=== PATIENT | female | born 1965 | race Caucasian/White ===

== ENCOUNTER 2021-03-07 17:07 | Emergency (ER) | payer BC ==
[~2021-03-07] VITALS: Ht 167.6 cm; Wt 130.0 kg
[2021-03-07] MEDS ORDERED: hydrALAZINE 20 MG/ML VIAL. IV ONE (18:15)
[2021-03-07 18:40] LABS: CALCIUM 9.3 mg/dL (8.5-10.1); CREATININE 1.3 mg/dL (0.6-1.0); GFR 42.5; POTASSIUM 3.8 mmol/L (3.5-5.1)
[2021-03-07 18:46] LABS: ALBUMIN 3.7 g/dL (3.4-5.0); ALBUMIN/GLOBULIN RATIO 0.9 (1.0-1.7); BASO # 0.1 x10^3/uL (0.0-0.2); BASO % 1 % (0-3); EOS # 0.1 x10^3/uL (0.0-0.7); EOS % 1 % (0-3); HEMATOCRIT 44.8 % (36.0-47.0); HEMOGLOBIN 14.9 g/dL (12.0-15.5); LYMPH # 2.1 x10^3/uL (1.0-4.8); LYMPH % 20 % (24-48); MEAN CORPUSCULAR HEMOGLOBIN 30 pg (25-35); MEAN CORPUSCULAR HGB CONC 33 g/dL (31-37); MEAN CORPUSCULAR VOLUME 91 fL (79-100); MONO # 0.9 x10^3/uL (0.0-1.1); MONO % 8 % (0-9); NEUT # 7.4 x10^3uL (1.8-7.7); NEUT % 70 % (31-73); PLATELET COUNT 291 x10^3/uL (140-400); RED BLOOD COUNT 4.93 x10^6/uL (3.50-5.40); RED CELL DISTRIBUTION WIDTH 14.5 % (11.5-14.5); TOTAL BILIRUBIN 0.3 mg/dL (0.2-1.0); TOTAL PROTEIN 7.6 g/dL (6.4-8.2); WHITE BLOOD COUNT 10.6 x10^3/uL (4.0-11.0)
--- NOTE | 2021-03-07 18:57 | RAD ---
EXAM: XR FOOT_RIGHT 3 VIEWS, XR EXAM OF ANKLE_RIGHT 3VIEWS 03/07/2021 6:00 PM CLINICAL INDICATION: Injury COMPARISON: None TECHNIQUE: 3 views of the right foot and 3 views of the right FINDINGS: Right foot: No acute fracture. Alignment is normal. Mild joint space narrowing at the great toe MTP j oint. Tiny plantar calcaneal enthesophyte. Soft tissue is normal. Right ankle: No acute fracture. The ankle mortise is symmetric and talar dome is intact. No focal sof t tissue abnormality. IMPRESSION: No acute osseous abnormality of the right foot or ankle. Electronically signed by: Shae Garcia MD (03/07/2021 6:54 PM) [id number]
--- NOTE | 2021-03-07 18:58 | RAD ---
EXAM: XR CHEST 1V 03/07/2021 6:00 PM CLINICAL INDICATION: Ankle pain COMPARISON: None TECHNIQUE: PA view of the chest FINDINGS: The heart and mediastinum are normal. Lungs are well-expanded and clear. No consolidatio n, pleural effusion, or pneumothorax. Pulmonary vascularity is normal. The thoracic skeleton is int act. IMPRESSION: Normal chest radiograph. Electronically signed by: Shae Garcia MD (03/07/2021 6:55 PM) [id number]
--- NOTE | 2021-03-07 19:04 | PHYS DOC ---
Past History Past Medical History: No Pertinent History Past Surgical History: No Surgical History Alcohol Use: None General Adult EDM: Chief Complaint: ANKLE PROBLEM HPI: HPI: Patient is a 55-year-old female presents with right ankle pain after missing a step at work and falling. Patient states pain is been worse with ambulation. Patient reports taking Tylenol prior to arrival with little relief. Review of Systems: Review of Systems: Constitutional: Denies fever or chills Eyes: Denies change in visual acuity HENT: Denies nasal congestion or sore throat Respiratory: Denies cough or shortness of breath Cardiovascular: Denies chest pain or edema GI: Denies abdominal pain, nausea, vomiting, bloody stools or diarrhea : Denies dysuria Musculoskeletal: Reports right ankle and foot pain Integument: Denies rash Neurologic: Denies headache, focal weakness or sensory changes Endocrine: Denies polyuria or polydipsia Lymphatic: Denies swollen glands Psychiatric: Denies depression or anxiety Current Medications: Current Meds: Current Medications Medications (Trade) Dose Ordered Sig/Ev Start Time Stop Time Status Last Admin Dose Admin Hydralazine HCl (Apresoline) 20 mg 1X ONCE 03/07/21 18:15 03/07/21 18:27 DC 03/07/21 18:32 20 MG Allergies: Allergies: Allergies Coded Allergies Type Severity Reaction Last Updated Verified No Known Drug Allergies 03/07/21 No Physical Exam: PE: Constitutional: Well developed, well nourished, no acute distress, non-toxic appearance. [] HENT: Normocephalic, atraumatic, bilateral external ears normal, oropharynx moist, no oral exudates, nose normal. [] Eyes: PERRLA, EOMI, conjunctiva normal, no discharge. [] Neck: Normal range of motion, no tenderness, supple, no stridor. [] Cardiovascular:Heart rate regular rhythm, no murmur [] Lungs & Thorax: Bilateral breath sounds clear to auscultation [] Abdomen: Bowel sounds normal, soft, no tenderness, no masses, no pulsatile masses. [] Skin: Warm, dry, no erythema, no rash. [] Back: No tenderness, no CVA tenderness. [] Extremities: Right ankle tenderness, ROM intact, no edema. [] Neurologic: Alert and oriented X 3, normal motor function, normal sensory function, no focal deficits noted. [] Psychologic: Affect normal, judgement normal, mood normal. [] Current Patient Data: Labs: Laboratory Tests Test 03/07/21 18:15 White Blood Count 10.6 x10^3/uL (4.0-11.0) Red Blood Count 4.93 x10^6/uL (3.50-5.40) Hemoglobin 14.9 g/dL (12.0-15.5) Hematocrit 44.8 % (36.0-47.0) Mean Corpuscular Volume 91 fL (79-100) Mean Corpuscular Hemoglobin 30 pg (25-35) Mean Corpuscular Hemoglobin Concent 33 g/dL (31-37) Red Cell Distribution Width 14.5 % (11.5-14.5) Platelet Count 291 x10^3/uL (140-400) Neutrophils (%) (Auto) 70 % (31-73) Lymphocytes (%) (Auto) 20 % (24-48) L Monocytes (%) (Auto) 8 % (0-9) Eosinophils (%) (Auto) 1 % (0-3) Basophils (%) (Auto) 1 % (0-3) Neutrophils # (Auto) 7.4 x10^3uL (1.8-7.7) Lymphocytes # (Auto) 2.1 x10^3/uL (1.0-4.8) Monocytes # (Auto) 0.9 x10^3/uL (0.0-1.1) Eosinophils # (Auto) 0.1 x10^3/uL (0.0-0.7) Basophils # (Auto) 0.1 x10^3/uL (0.0-0.2) Sodium Level 144 mmol/L (136-145) Potassium Level 3.8 mmol/L (3.5-5.1) Chloride Level 102 mmol/L (98-107) Carbon Dioxide Level 29 mmol/L (21-32) Anion Gap 13 (6-14) Blood Urea Nitrogen 21 mg/dL (7-20) H Creatinine 1.3 mg/dL (0.6-1.0) H Estimated GFR (Cockcroft-Gault) 42.5 BUN/Creatinine Ratio 16 (6-20) Glucose Level 224 mg/dL (70-99) H Calcium Level 9.3 mg/dL (8.5-10.1) Total Bilirubin 0.3 mg/dL (0.2-1.0) Aspartate Amino Transferase (AST) 33 U/L (15-37) Alanine Aminotransferase (ALT) 65 U/L (14-59) H Alkaline Phosphatase 79 U/L (46-116) Total Protein 7.6 g/dL (6.4-8.2) Albumin 3.7 g/dL (3.4-5.0) Albumin/Globulin Ratio 0.9 (1.0-1.7) L Vital Signs: Vital Signs Date Time Temp Pulse Resp B/P (MAP) Pulse Ox O2 Delivery O2 Flow Rate FiO2 03/07/21 18:32 104 278/136 03/07/21 17:22 97.9 18 97 Room Air EKG: EKG: [] Radiology/Procedures: Radiology/Procedures: []EXAM: XR FOOT_RIGHT 3 VIEWS, XR EXAM OF ANKLE_RIGHT 3VIEWS 03/07/2021 6:00 PM CLINICAL INDICATION: Injury COMPARISON: None TECHNIQUE: 3 views of the right foot and 3 views of the right FINDINGS: Right foot: No acute fracture. Alignment is normal. Mild joint space narrowing at the great toe MTP joint. Tiny plantar calcaneal enthesophyte. Soft tissue is normal. Right ankle: No acute fracture. The ankle mortise is symmetric and talar dome is intact. No focal soft tissue abnormality. IMPRESSION: No acute osseous abnormality of the right foot or ankle. EXAM: XR CHEST 1V 03/07/2021 6:00 PM CLINICAL INDICATION: Ankle pain COMPARISON: None TECHNIQUE: PA view of the chest FINDINGS: The heart and mediastinum are normal. Lungs are well-expanded and clear. No consolidation, pleural effusion, or pneumothorax. Pulmonary vascularity is normal. The thoracic skeleton is intact. IMPRESSION: Normal chest radiograph. Electronically signed by: Shae Garcia MD (03/07/2021 6:55 PM) [id number] Heart Score: C/O Chest Pain: No Risk Factors: Risk Factors: DM, Current or recent (<one month) smoker, HTN, HLP, family history of CAD, obesity. Risk Scores: Score 0 - 3: 2.5% MACE over next 6 weeks - Discharge Home Score 4 - 6: 20.3% MACE over next 6 weeks - Admit for Clinical Observation Score 7 - 10: 72.7% MACE over next 6 weeks - Early Invasive Strategies Course & Med Decision Making: Course & Med Decision Making Pertinent Labs and Imaging studies reviewed. (See chart for details) [] 55-year-old female presents with right ankle pain after falling today at work. Patient reports she missed a step and fell to the concrete. X-ray of right foot and ankle ordered to rule out fracture. Patient's blood pressure was 278/136. Patient denies having a history of hypertension. Patient states she does not have a primary care physician and has not been to the doctor in 15 years. Patient was asymptomatic. Denies chest pain, shortness of breath, headache. Patient given 20 mg of hydralazine to treat hypertension. Patient's blood pressure was 169/90 on reassessment. Given a prescription for hydralazine, 20 mg, daily. Patient instructed to follow-up and establish relationship with a PCP. Patient agrees with discharge plan and will follow up with PCP. Foot and ankle x-ray negative for fracture. Patient given rice instructions. Patient also given the number for [facility] orthopedics for a follow-up if pain continues. Ibuprofen and Tylenol at home for discomfort. Dragon Disclaimer: Dragon Disclaimer: This electronic medical record was generated, in whole or in part, using a voice recognition dictation system. Departure Departure: Impression: Primary Impression: Ankle sprain Qualified Codes: S93.401A - Sprain of unspecified ligament of right ankle, initial encounter Additional Impression: Hypertension Qualified Codes: I10 - Essential (primary) hypertension Disposition: HOME / SELF CARE / HOMELESS Condition: STABLE Referrals: PCP,NO (PCP) Patient Instructions: Ankle Sprain, [id number], RICE - Routine Care for Injuries, [id number] Additional Instructions: You were seen in the emergency room for right ankle pain after a fall today. The x-ray of your right ankle was negative for fracture. You can use ice to the ankle and foot, Chalino wrap, elevate to help with swelling and pain. Ibuprofen and Tylenol at home for discomfort. Your blood pressure was also elevated. I am sending you home with a prescription for hydralazine, 20 mg, daily. I am also giving you a list of doctors for you to follow-up with. Please take medication as directed and please follow-up with PCP to establish a relationship and manage her medications. Return to the emergency room if you have worsening symptoms or concerns. EMERGENCY DEPARTMENT GENERAL DISCHARGE INSTRUCTIONS Thank you for coming to [facility] (ED) today and trusting us with you care. We trust that you had a positivie experience in our Emergency Department. If you wish to speak to the department management, you may call the director at [phone]. YOUR FOLLOW UP INSTRUCTIONS ARE FOLLOWS: 1. Do you have a private Doctor? If you do not have a private doctor, please ask for a resource list of physicians or clinics that may be able to assist you with follow up care. 2. The Emergency Physician has interpreted your x-rays. The X-Ray specialist will also review them. If there is a change in the findings, you will be notified in 48 hours when at all possible. 3. A lab test or culture has been done, your results will be reviewed and you will be notified if you need a change in treatment. ADDITIONAL INSTRUCTIONS AND INFORMATION: 1. Your care today has been supervised by a physician who is specially trained in emergency care. Many problems require more than one evaluation for a complete diagnosis and treatment. We recommend that you schedule your follow up appointment as recommended to ensure complete treatment of you illness or injury. If you are unable to obtain follow up care and continue to have a problem, or if your condition worsens, we recommend that you return to the ED. 2. We are not able to safely determine your condition over the phone nor are we able to give sound medical advice over the phone. For these safety reasons, if you call for medical advice we will ask you to come to the ED for further evaluation. 3. If you have any questions regarding these discharge instructions please call the ED at [phone]. SAFETY INFORMATION: In the interest of safety, wellness, and injury prevention; we encourage you to wear your sealbelt, if you smoke; quite smoking, and we encourage family to use a protective helmet for bicycling and other sporting events that present an increased risk for head injury. IF YOUR SYMPTOMS WORSEN OR NEW SYMPTOMS DEVELOP, OR YOU HAVE CONCERNS ABOUT YOUR CONDITION; OR IF YOUR CONDITION WORSENS WHILE YOU ARE WAITING FOR YOUR FOLLOW UP APPOINTMENT; EITHER CONTACT YOUR PRIMARY CARE DOCTOR, THE PHYSICIAN WHOSE NAME AND NUMBER YOU WERE GIVEN, OR RETURN TO THE ED IMMEDIATELY. Scripts Hydralazine Hcl (HYDRALAZINE HCL) 10 Mg Tablet 20 MG PO DAILY for hypertension for 30 Days, #60 TAB Prov: KENROY SANDS APRN 03/07/21 KENROY SANDS APRN Mar 07, 2021 19:04
[2021-03-07] MEDS ORDERED: HYDR-2867 PO (19:24)
[2021-03-07] MEDS ORDERED: cloNIDine HCL 0.1 MG TABLET ONE (19:33)
[2021-03-07 19:35] VITALS: BP 193/96
[2021-03-07] MEDS ORDERED: cloNIDine HCL 0.1 MG TABLET PO ONE (19:45)
== END 2021-03-07 19:52 | disposition home or self-care (01) ==
LOC: ER 17:07
DX: S93.401A Sprain of unspecified ligament of right ankle, initial encounter (principal); I10 Essential (primary) hypertension; W10.8XXA Fall (on) (from) other stairs and steps, initial encounter; Y93.89 Activity, other specified; Y92.89 Other specified places as the place of occurrence of the external cause; Y99.8 Other external cause status
CPT/HCPCS: 36415; 71045; 73610; 73630; 80048; 80053; 85025; 96374; 99284; J0360